=== PATIENT | male | born 1935 | race African-American/Black ===

== ENCOUNTER 2017-04-23 09:25 | Inpatient (IN) | payer MEDICARE, BC ==
[~2017-04-23] VITALS: Ht 170.2 cm; Wt 65.3 kg
[2017-04-23 10:49] LABS: BASOPHILS % 1.2 % (0.0-2.0); EOSINOPHILS % 4.9 % (0.0-5.0); HEMATOCRIT. 39.4 % (42.0-52.0); HEMOGLOBIN. 12.8 g/dL (14.0-18.0); LYMPHOCYTES % 34.9 % (20.0-50.0); MEAN CORPUSCULAR HEMOGLOBIN 29.2 pg (28.0-32.0); MEAN PLATELET VOLUME 9.1 fl (7.4-10.4); MONOCYTES % 8.8 % (2.0-8.0); NEUTROPHILS % 50.2 % (40.0-76.0); PLATELET 149 x1000/uL (130-400); RED BLOOD CELL COUNT 4.38 mill/uL (4.7-6.1)
[2017-04-23 10:57] LABS: INR 1.1; PROTHROMBIN TIME 11.8 sec (9.4-11.6)
[2017-04-23 11:12] LABS: CARBON DIOXIDE 27 mEq/L (21-32); CHLORIDE 109 mEq/L (98-107); T4 FREE 1.04 ng/dL (0.76-1.46)
[2017-04-23 11:13] LABS: TROPONIN I 0.85 ng/mL (0.00-0.04)
[2017-04-23] MEDS ORDERED: ASPIRIN 325MG EC TABLET PO ONE (11:15)
[2017-04-23] MEDS ORDERED: FUROSEMIDE 20MG/2ML VIAL IVP ONE (11:30)
[2017-04-23] MEDS ORDERED: ENALAPRIL 2.5MG/2ML VIAL 2ML IV ONE (11:30)
[2017-04-23] MEDS ORDERED: ONDANSETRON HCL 4MG/2ML VIAL IV PRN (13:15)
[2017-04-23] MEDS ORDERED: CLONIDINE 0.1MG TABLET PO PRN (13:15)
[2017-04-23] MEDS ORDERED: ACETAMINOPHEN 325MG TABLET PO PRN (13:15)
[2017-04-23] MEDS ORDERED: HYDROMORPHONE HCL/PF 2MG/ML CPJ IV PRN (13:15)
[2017-04-23] MEDS ORDERED: CARVEDILOL 3.125 MG TABLET PO NR (13:15)
[2017-04-23] MEDS ORDERED: ASPIRIN 81MG EC TABLET PO NR (13:15)
[2017-04-23] MEDS ORDERED: MVI, ADULT NO.1 10 ML, FOLIC ACID 1 MG, THIAMINE HCL 100 MG in SODIUM CHLORIDE 0.9% 1,0... IV SCH ×4 (13:15)
[2017-04-23 15:05] LABS: CREATINE KINASE MB FRACTION 2.5 ng/mL (0.5-3.6)
[2017-04-23 15:19] LABS: TROPONIN I 0.76 ng/mL (0.00-0.04)
[2017-04-23 16:15] VITALS: BP 158/78
[2017-04-23 16:20] VITALS: BP 158/78
[2017-04-23] MEDS ORDERED: ASPI-986 PO (17:40)
[2017-04-23 20:00] VITALS: BP 135/72
[2017-04-24] VITALS: BP 137/72
[2017-04-24 00:48] LABS: TROPONIN I 0.69 ng/mL (0.00-0.04)
[2017-04-24] MEDS ORDERED: DEXTROSE 50% WATER 50ML SYRINGE IV PRN (01:00)
[2017-04-24 04:00] VITALS: BP 147/72
[2017-04-24] MEDS: IPRATROPIUM/ALBUTEROL 0.5-3(2.5)MG/3ML NEB HHN SCH ×5 (04:50→20:36)
[2017-04-24 07:04] LABS: BASOPHILS % 0.9 % (0.0-2.0); EOSINOPHILS % 6.4 % (0.0-5.0); LYMPHOCYTES % 39.2 % (20.0-50.0); MEAN CORPUSCULAR HEMOGLOBIN 29.4 pg (28.0-32.0); MEAN CORPUSCULAR VOLUME 90.3 fL (80.0-94.0); MEAN PLATELET VOLUME 10.2 fl (7.4-10.4); MONOCYTES % 11.2 % (2.0-8.0); NEUTROPHILS % 42.3 % (40.0-76.0); PLATELET 138 x1000/uL (130-400); RED BLOOD CELL COUNT 4.09 mill/uL (4.7-6.1); RED CELL DISTRIBUTION WIDTH 13.9 % (11.6-14.6)
[2017-04-24] MEDS: INSULIN LISPRO 100 UNITS/ML SUBCUT SCH ×4 (07:29→21:00)
[2017-04-24] MEDS: BLOOD SUGAR DIAGNOSTIC STRIP TEST SCH ×4 (07:29→21:17)
[2017-04-24 08:00] VITALS: BP 150/63
[2017-04-24 08:35] LABS: CARBON DIOXIDE 26 mEq/L (21-32); CHLORIDE 107 mEq/L (98-107)
[2017-04-24 08:38] LABS: HDL CHOLESTEROL 46 mg/dL (40-59); LDL CHOLESTEROL 109 mg/dL (5-100)
[2017-04-24] MEDS: ENOXAPARIN 30MG/0.3ML SYR SUBCUT SCH (08:46)
[2017-04-24] MEDS ORDERED: FUROSEMIDE 40MG/4ML VIAL IVP SCH (09:00)
[2017-04-24 10:22] LABS: BG BASE EXCESS -1.4 mmol/L (-2.0-2.0); BG CARBOXYHEMOGLOBIN 0.5 % (0.5-1.5); BG DEOXYHEMOGLOBIN 6.7 % (0.0-5.0); BG FRACTION INSPIRED OXYGEN 21; BG HCO3 ACT 23.4 mmol/L (22.0-26.0); BG METHEMOGLOBIN 0.4 % (0.0-1.5); BG OXYGEN SATURATION 93.2 % (92.0-98.5); BG OXYHEMOGLOBIN 92.4 % (94.0-97.0); BG PCO2 39.6 mmHg (35.0-45.0); BG PH 7.389 (7.350-7.450); BG PO2 68.2 mmHg (75.0-100.0); BG SAMPLE SITE LEFT RADIAL; BG TOTAL HEMOGLOBIN 13.5 g/dL (12.0-18.0); BG VENT MODE ROOM AIR
[2017-04-24] MEDS: ASPIRIN 81MG TABLET PO SCH (10:56)
[2017-04-24] MEDS: CARVEDILOL 3.125 MG TABLET PO SCH ×2 (10:57→21:17)
[2017-04-24 12:00] VITALS: BP 138/73
[2017-04-24 16:00] VITALS: BP 140/65
[2017-04-24 20:00] VITALS: BP 145/70
[2017-04-25] VITALS: BP 133/67
[2017-04-25] MEDS: IPRATROPIUM/ALBUTEROL 0.5-3(2.5)MG/3ML NEB HHN SCH ×2 (00:42→05:12)
[2017-04-25 04:00] VITALS: BP 142/79
[2017-04-25 07:20] LABS: BASOPHILS % 1.2 % (0.0-2.0); EOSINOPHILS % 6.4 % (0.0-5.0); HEMATOCRIT. 37.3 % (42.0-52.0); HEMOGLOBIN. 12.1 g/dL (14.0-18.0); LYMPHOCYTES % 38.8 % (20.0-50.0); MEAN CORPUSCULAR HEMOGLOBIN 29.3 pg (28.0-32.0); MEAN CORPUSCULAR VOLUME 89.9 fL (80.0-94.0); MONOCYTES % 13.2 % (2.0-8.0); NEUTROPHILS % 40.4 % (40.0-76.0); PLATELET 136 x1000/uL (130-400); RED BLOOD CELL COUNT 4.14 mill/uL (4.7-6.1); RED CELL DISTRIBUTION WIDTH 13.7 % (11.6-14.6)
[2017-04-25] MEDS: BLOOD SUGAR DIAGNOSTIC STRIP TEST SCH ×2 (07:40→12:42)
[2017-04-25] MEDS: INSULIN LISPRO 100 UNITS/ML SUBCUT SCH ×2 (07:53→12:42)
[2017-04-25 08:00] VITALS: BP 159/89
[2017-04-25 08:09] LABS: PHOSPHORUS 3.1 mg/dL (2.5-4.9)
[2017-04-25] MEDS ORDERED: CARVEDILOL 3.125 MG TABLET PO SCH (09:00)
[2017-04-25] MEDS ORDERED: FUROSEMIDE 20MG/2ML VIAL IVP SCH (09:00)
[2017-04-25] MEDS: ASPIRIN 81MG TABLET PO SCH (09:41)
[2017-04-25] MEDS: ENOXAPARIN 30MG/0.3ML SYR SUBCUT SCH (09:46)
[2017-04-25 12:00] VITALS: BP 150/83
[2017-04-25 12:56] VITALS: BP 150/83
[2017-04-25 14:44] LABS: CLARITY URINE CLEAR (CLEAR); COLOR URINE YELLOW (YELLOW); GLUCOSE URINE NEGATIVE (NEGATIVE); KETONES URINE NEGATIVE (NEGATIVE); LEUKOCYTE ESTERASE URINE NEGATIVE (NEGATIVE); NITRITE URINE NEGATIVE (NEGATIVE); OCCULT BLOOD URINE NEGATIVE (NEGATIVE); PROTEIN URINE 2+ (NEGATIVE); SPECIFIC GRAVITY URINE 1.011 (1.005-1.030); UROBILINOGEN URINE 0.2 E.U./dL (0.2-1.0)
[2017-04-25] MEDS ORDERED: ATORVASTATIN CALCIUM 40MG TABLET PO SCH (21:00)
== END 2017-04-25 13:35 | disposition home or self-care (01) | DRG 280 ==
LOC: ER 09:25 → ENRESERV 13:47 → 7WST 16:26
PROVIDERS: ADMIT Internal Medicine Geriatric Medicine; ATTEND Internal Medicine Geriatric Medicine
DX: I13.0 Hypertensive heart and chronic kidney disease with heart failure and stage 1 through stage 4 chronic kidney disease, or unspecified chronic kidney disease (principal); I50.43 Acute on chronic combined systolic (congestive) and diastolic (congestive) heart failure; I21.4 Non-ST elevation (NSTEMI) myocardial infarction; E11.22 Type 2 diabetes mellitus with diabetic chronic kidney disease; I42.0 Dilated cardiomyopathy; R17 Unspecified jaundice; E11.69 Type 2 diabetes mellitus with other specified complication; N18.3 Chronic kidney disease, stage 3 (moderate); K76.1 Chronic passive congestion of liver; N28.1 Cyst of kidney, acquired; D63.8 Anemia in other chronic diseases classified elsewhere; E03.9 Hypothyroidism, unspecified; E04.2 Nontoxic multinodular goiter; I25.10 Atherosclerotic heart disease of native coronary artery without angina pectoris; I48.2 Chronic atrial fibrillation; I48.0 Paroxysmal atrial fibrillation; M10.9 Gout, unspecified; Z91.19 Patient's noncompliance with other medical treatment and regimen; Z88.8 Allergy status to other drugs, medicaments and biological substances
CPT/HCPCS: 36415; 36600; 70490; 71010; 74181; 76770; 80048; 80053; 80061; 81001; 82375; 82553; 82805; 82962; 83036; 83735; 83880; 83970; 84100; 84439; 84443; 84484; 85025; 85610; 93005; 93306; 93970; 94640; 96374; 96375; 99285; J1650; J1940; J3490; J7620